=== PATIENT | female | born 1985 | race Caucasian/White ===

== ENCOUNTER 2017-03-10 12:36 | Emergency (ER) | payer OTHER ==
[~2017-03-10] VITALS: Ht 165.1 cm; Wt 105.4 kg
[2017-03-10] MEDS ORDERED: BACL10TA2 (13:03)
[2017-03-10] MEDS ORDERED: IBUP-1114 PO (13:03)
[2017-03-10] MEDS ORDERED: KETOROLAC 60 MG/2 ML VIAL (J1885) IM ONE (15:15)
[2017-03-10] MEDS ORDERED: ULTR50TA8 PO (15:40)
[2017-03-10] MEDS ORDERED: ROBA500T PO (15:40)
[2017-03-10 16:02] VITALS: BP 115/58
== END 2017-03-10 16:02 | disposition home or self-care (01) ==
LOC: M ED 12:36
DX: M54.5 Low back pain (principal); G89.29 Other chronic pain; Z72.0 Tobacco use
CPT/HCPCS: 96372; 99282; J1885; J3360